=== PATIENT | male | born 1965 | race African-American/Black ===

== ENCOUNTER 2021-11-21 08:19 | Emergency (ER) | payer SELFPAY ==
[2021-11-21 08:52] VITALS: BP 133/79; PULSE 84; TEMP 98.3; BMI 27.6
[2021-11-22 14:13] LABS: SARS-CoV-2 NAA Detected (Not Detected)
== END 2021-11-21 10:31 | disposition home or self-care (01) ==
LOC: JER 08:19
DX: R05.1 Acute cough (principal)
CPT/HCPCS: 71045-TC-FY; 87804; 99284-25; C9803; U0003; U0005

== ENCOUNTER 2023-10-29 07:34 | Emergency (ER) | payer OTHER ==
[2023-10-29 07:46] VITALS: BP 148/68; PULSE 80; RESP 20; TEMP 98; BMI 26.2
[2023-10-29] MEDS ORDERED: DOXYCYCLINE HYCLATE 100 MG CAPSULE PO ONE ×2 (08:10→08:18)
[2023-10-29] MEDS ORDERED: cefTRIAXone SODIUM 1 GM VIAL ONE (08:18)
[2023-10-29 09:01] LABS: PH,URINE 6.5 (5.0-8.0); URINE APPEARANCE CLEAR; URINE BILIRUBIN NEGATIVE (NEGATIVE); URINE COLOR YELLOW; URINE GLUCOSE (UA) NEGATIVE (NEGATIVE); URINE KETONE NEGATIVE (NEGATIVE); URINE LEUK ESTERASE NEGATIVE (NEGATIVE); URINE NITRITE NEGATIVE (NEGATIVE); URINE PROTEIN NEGATIVE (NEGATIVE)
[2023-10-29 09:56] LABS: CALCIUM 9.4 mg/dL (8.5-10.1)
[2023-10-29 09:57] LABS: ALBUMIN 3.9 g/dl (3.4-5.0); BLOOD UREA NITROGEN 10.9 mg/dL (7-18)
[2023-10-29 10:02] LABS: BILIRUBIN,TOTAL 0.9 mg/dL (0.2-1); TOT PROT 7.7 g/dl (6.4-8.2)
[2023-10-29 10:29] LABS: SYPHILIS W/ RPR CONF NON-REACTIVE (NONREACTIVE)
[2023-10-29 10:57] LABS: HIV INTERPRETATION NEGATIVE (NEGATIVE)
== END 2023-10-29 11:45 | disposition home or self-care (01) ==
LOC: JER 07:34
DX: R36.9 Urethral discharge, unspecified (principal)
CPT/HCPCS: 36415; 80053; 81003; 86705; 86780; 87086; 87340; 87389; 87491; 87517; 87522; 87591; 99284-25